=== PATIENT | female | born 1990 | race Caucasian/White ===

== ENCOUNTER 2016-12-04 08:34 | Emergency (ER) | payer OTHER ==
[2016-12-04] MEDS ORDERED: Ketorolac INJ* 60 MG/2 ML VIAL IM ONE (09:50)
[2016-12-04] MEDS ORDERED: Cyclobenzaprine TAB* 10 MG PO ONE (09:50)
--- NOTE | 2016-12-04 09:58 | ED ---
Back Pain - HPI Summary HPI Summary: 26 female presents with complaints of low back pain that began this morning after lifting ~225lbs while at the gym. Patient typically does this weight however today while doing it she felt a pop and was unable to walk and get up due to the pain. Any movement makes the pain worse, rest makes it better. She has not taken any medications. Describes pain as sharp, shooting and dull ache when resting. Isaura radiates into the buttocks. Denies known bruising or swelling. Denies numbness/tingling, weakness, saddle anesthesia, bladder/bowel incontinence. No other injuries or complaints at this time. Denies PMHx. - History of Current Complaint Chief Complaint: EDBackInjuryPain Stated Complaint: BACK PAIN Time Seen by Provider: 12/04/16 08:48 Hx Obtained From: Patient Onset/Duration: Sudden Onset, Lasting Hours Onset/Duration: Started Hours Ago, Traumatic, Still Present Timing: Constant Back Pain Location: Is Discrete @ - low back around L2-S1 area Severity Initially: Moderate Severity Currently: Moderate Pain Intensity: 8 Pain Scale Used: 0-10 Numeric Character: Sharp, Aching, Stiffness Aggravating Symptom(s): Movement Alleviating Symptom(s): Rest Associated Signs And Symptoms: Positive: Pain with Weight Bearing. Negative: Swelling, Redness, Bruising, Weakness, Numbness, Tingling, Abdominal Pain, Bladder Incontinence, Bowel Incontinence - Risk Factors AAA Risk Factors: Negative TAD Risk Factors: Negative Cauda Equina Risk Factors: Negative - Allergies/Home Medications Allergies/Adverse Reactions: Allergies Allergy/AdvReac Type Severity Reaction Status Date / Time Amoxicillin Allergy Rash Verified 12/04/16 08:41 Penicillins Allergy Rash Verified 12/04/16 08:41 PMH/Surg Hx/FS Hx/Imm Hx Endocrine/Hematology History: Denies: Hx Diabetes Cardiovascular History: Denies: Hx Hypotension, Hx Hypertension Respiratory History: Denies: Hx Asthma Musculoskeletal History: Denies: Hx Arthritis, Hx Osteoporosis - Surgical History Surgery Procedure, Year, and Place: none - Immunization History Immunizations Up to Date: Yes Infectious Disease History: No Infectious Disease History: Denies: Traveled Outside the [place] in Last 30 Days - Family History Known Family History: Positive: None - Social History Alcohol Use: Weekly Substance Use Type: Reports: Marijuana Substance Use Comment - Amount & Last Used: daily Smoking Status (MU): Never Smoked Tobacco Review of Systems Constitutional: Negative Cardiovascular: Negative Respiratory: Negative Gastrointestinal: Negative Positive: Arthralgia, Myalgia, Decreased ROM - low back Skin: Negative Neurological: Negative All Other Systems Reviewed And Are Negative: Yes Physical Exam Triage Information Reviewed: Yes Vital Signs On Initial Exam: Initial Vitals Temp Pulse Resp BP Pulse Ox 99 F 57 16 129/79 100 12/04/16 08:38 12/04/16 08:38 12/04/16 08:38 12/04/16 08:38 12/04/16 08:38 Vital Signs Reviewed: Yes Appearance: Positive: Well-Appearing, No Pain Distress, Well-Nourished Skin: Positive: Warm, Skin Color Reflects Adequate Perfusion, Dry. Negative: Cold, Cyanosis @, Pale, Erythema @ Head/Face: Positive: Normal Head/Face Inspection Eyes: Positive: Conjunctiva Clear ENT: Positive: Hearing grossly normal Neck: Positive: Supple, Nontender Respiratory/Lung Sounds: Positive: Clear to Auscultation, Breath Sounds Present. Negative: Rales, Rhonchi, Wheezes Cardiovascular: Positive: Normal, RRR, Pulses are Symmetrical in both Upper and Lower Extremities. Negative: Murmur, Rub Abdomen Description: Positive: Nontender, Soft. Negative: Bruit, Distended, Guarding, Peritoneal Signs, Pulsatile Mass Bowel Sounds: Positive: Present Musculoskeletal: Positive: Limited @ - low back with any movement due to pain, Pain @ - L2-S1 with movement, no tenderness on palpation, Other - rest of MSK exam normal besides limited ROM and pain in low back L2-S1. no obvious deformity , ecchymosis, edema or step off noted.. Negative: Interruption @, Edema Left, Edema Right Neurological: Positive: Normal, Sensory/Motor Intact - sensation normal, Alert, Oriented to Person Place, Time, CN Intact II-III, Reflexes Intact, NV Bundle Intact Distally, Abnormal Gait - pain but able and can bear weight Psychiatric: Positive: Affect/Mood Appropriate Diagnostics - Vital Signs Vital Signs Temp Pulse Resp BP Pulse Ox 12/04/16 08:43 99 F 54 16 129/79 100 12/04/16 08:38 99 F 57 16 129/79 100 - Laboratory Lab Statement: Any lab studies that have been ordered have been reviewed, and results considered in the medical decision making process. - Radiology lumbosacral Xray Interpretation: No Acute Changes - NO PLAIN RADIOGRAPHIC ABNORMALITIES Radiology Interpretation Completed By: Radiologist Re-Evaluation - Re-Evaluation First Eval Re-Evaluation Time: 10:40 Change: Improved - had improvement of pain and symptoms after medication Back Pain Course/Dx - Course Course Of Treatment: after medication patients gait was assessed and she was able. given toradol and flexeril. will x-rays obtained to rule out avulsion injury from muscle strain/tear. Patient agreed. Continue RICE and NSAIDs at home. Rest and refrain from physical activity/working out until symptoms improve. Follow up PCP. Aware of worsening signs and symptoms to watch out for and to return if occur such as bladder/bowel incontinence, worsening pain/ weakness, numbness/tingling. - Diagnoses Differential Diagnosis/HQI/PQRI: Positive: Fracture, Strain, Sprain Provider Diagnoses: Lumbosacral strain Discharge - Discharge Plan Condition: Stable Disposition: HOME Prescriptions: Cyclobenzaprine TAB* [Flexeril 10 MG TAB*] 10 mg PO BEDTIME #10 tab HYDROcodone/ACETAMIN 5-325 MG* [[place] 5-325 TAB*] 1 tab PO Q6H PRN #5 tab MDD 2 PRN Reason: Pain Naproxen TAB* [Naprosyn 375 mg TAB*] 375 mg PO Q8H #25 tab predniSONE TAB* [Deltasone TAB*] 20 mg PO DAILY #2 tab Patient Education Materials: Low Back Strain (ED) Referrals[facility] [Primary Care Provider] - Consuelo Khan MD [Medical Doctor] - Additional Instructions: Continue taking prescribed medication at home as directed, starting tomorrow ( prednisone, naproxen) You may take another muscle relaxer at bedtime tonight and continue taking tomorrow (flexeril) If you are not finding relief from muscle relaxer or it causes you to be too drowsy you may stop taking it or you can cut it in half. Take hydrocodone only as needed inbetween naproxen for pain. Take medications with food. Apply heat to low back multiple times daily. Rest and refrain from physical activity for at least 1 week and until symptoms improve. Follow up with PCP. If symptoms worsen or do not improve within 2 weeks please seek medical attention and make appointment with orthopedics.
[2016-12-04 10:06] LABS: UR Preg Internal Control QC Line Present
[2016-12-04 10:07] LABS: Manual Entry Verification CAS0014
--- NOTE | 2016-12-04 10:34 | RAD ---
INDICATION: Back pain COMPARISON: None TECHNIQUE: Routine PA, lateral, and oblique imaging was performed . FINDINGS: Bones: There are no acute bony findings. There are no significant osteoarthritic findings. Alignment: Normal Disc spaces: The disc spaces are well-maintained Soft tissues: There are no soft tissue abnormalities. IMPRESSION: NO PLAIN RADIOGRAPHIC ABNORMALITIES
[2016-12-04] MEDS ORDERED: predniSONE TAB* 10 MG PO ONE (10:39)
[2016-12-04 11:16] VITALS: BP 130/60
== END 2016-12-04 11:15 | disposition home or self-care (01) ==
LOC: ED 08:34
DX: S39.012A Strain of muscle, fascia and tendon of lower back, initial encounter (principal); Y92.9 Unspecified place or not applicable; Y93.B3 Activity, free weights; X50.9XXA Other and unspecified overexertion or strenuous movements or postures, initial encounter; M54.5 Low back pain
CPT/HCPCS: 72110; 81025; 96372; 99282; A9270-GY; J1885; J7512